=== PATIENT | female | born 1960 | race Caucasian/White ===

== ENCOUNTER 2017-10-05 09:47 | Day surgery (SDC) | payer MEDICAID ==
[2017-10-02 11:25] LABS: BASOPHILS # (AUTO) 0.2 X10'3 (0-0.2); BASOPHILS % (AUTO) 1.7 % (0-1); EOSINOPHILS # (AUTO) 0.3 X10'3 (0-0.9); EOSINOPHILS % (AUTO) 2.3 % (0-6); HEMATOCRIT 40.5 % (35.0-45.0); HEMOGLOBIN 13.7 g/dl (12.0-16.0); LYMPHOCYTES # (AUTO) 3.5 X10'3 (1.1-4.8); LYMPHOCYTES % (AUTO) 31.6 % (21-51); MEAN CORPUSCULAR HEMOGLOBIN 30.2 PG (27.0-31.0); MEAN CORPUSCULAR HGB CONC 33.8 % (33.0-36.5); MEAN CORPUSCULAR VOLUME 89.2 FL (78-98); MEAN PLATELET VOLUME 8.3 FL (7.4-10.4); MONOCYTES # (AUTO) 0.7 X10'3 (0-0.9); MONOCYTES % (AUTO) 6.6 % (2-12); NEUTROPHILS # (AUTO) 6.4 X10'3 (1.8-7.7); NEUTROPHILS % (AUTO) 57.8 % (42-75); PLATELET COUNT 320 X10'3 (140-440); RED BLOOD COUNT 4.54 X10'6 (4.20-5.60); RED CELL DISTRIBUTION WIDTH 13.4 % (11.5-14.5)
[2017-10-02 11:33] LABS: INR 0.9 INR; PARTIAL THROMBOPLASTIN TIME 30 SECONDS (22-32); PROTHROMBIN TIME 9.6 SECONDS (9.0-12.0)
[2017-10-02 11:37] LABS: ALANINE AMINOTRANSFERASE 21 U/L (12-78); ALBUMIN 3.7 G/DL (3.4-5.0); ALKALINE PHOSPHATASE 141 IU/L (46-116); ANION GAP 7 (8-16); ASPARTATE AMINO TRANSFERASE 19 U/L (10-37); BILIRUBIN,TOTAL 0.2 MG/DL (0.1-1.0); BLOOD UREA NITROGEN 11 MG/DL (7-18); BUN/CREATININE RATIO 16.7 (6.6-38.0); CALCIUM 9.1 MG/DL (8.5-10.1); CHLORIDE 106 MMOL/L (99-107); CREATININE 0.66 MG/DL (0.40-0.90); GLUCOSE 98 MG/DL (70-104); SODIUM 140 MMOL/L (135-145); TOTAL CARBON DIOXIDE 26.7 MMOL/L (24-32); TOTAL PROTEIN 7.4 G/DL (6.4-8.2); eGFR > 90 ML/MIN
[~2017-10-05] VITALS: Ht 156.8 cm; Wt 72.6 kg
[2017-10-05] VITALS (17 sets, daily range): BP systolic 124–168; BP diastolic 56–90
[~2017-10-05 09:47] MED LIST: ASPI-974 PO; CLOP75TA15 PO; DIPH25CA83 PO; FEXO180T94 PO; HYDR-565 PO; IBUP-1984 PO; MAGN400C PO; MELA3TAB PO; MULT1TAB74 PO; NITR0.4T51 SL; PANT-47 PO; SUMA25TA35 PO; TRAZ150T78 PO; VERA360C2 PO; VITAMIN B1 PO; VITC500T PO; [UNRECOGNIZED DRUG - OTHER] PO; famotidine 20mg tablet PO ONE; ringers solution, lacted 1,000 ML IV SCH
[2017-10-05] MEDS ORDERED: normal saline 1000ml 1,000 ML IV SCH (10:25)
[2017-10-05] MEDS ORDERED: methylPREDNISolone sod succ 125mg/2ml vial IV ONE (10:25)
[2017-10-05] MEDS ORDERED: nitroGLYCERIN 0.4mg SUBLingual tab SL PRN ×2 (10:25→13:35)
[2017-10-05] MEDS ORDERED: diphenhydrAMINE 25mg capsule PO PRN (10:25)
[2017-10-05] MEDS ORDERED: LORazepam 0.5 MG tablet PO PRN (10:25)
[2017-10-05] MEDS ORDERED: sevoflurane 250ml liquid IH ONE (12:09)
[2017-10-05] MEDS ORDERED: heparin 1,000 units/ml 10ml inj ONE (12:09)
[2017-10-05] MEDS ORDERED: fentaNYL/PF 50MCG/1 ML 2ML syringe ONE ×2 (12:12→13:03)
[2017-10-05] MEDS ORDERED: midazolam 2 mg/2 ml injection ONE (12:12)
[2017-10-05] MEDS ORDERED: iohexol 350 MG/1 ML 200ml bottle ONE ×2 (12:14→12:29)
[2017-10-05] MEDS ORDERED: heparin 1,000unit/ml 10ml vial 10 ML ONE (12:14)
[2017-10-05] MEDS ORDERED: tirofiban 5mg in NS 100mL 100 ML IV ONE (12:17)
[2017-10-05] MEDS ORDERED: LIDOcaine 1%/PF (10mg/ml) 5ml vial ONE (12:45)
[2017-10-05] MEDS ORDERED: nitroGLYCERIN-Tridil 50MG/D5W 250 ML IV ONE (12:49)
[2017-10-05] MEDS ORDERED: ringers solution, lacted 1,000 ML IV SCH (13:17)
[2017-10-05] MEDS ORDERED: ondansetron/PF 4mg/2ml inj IV PRN ×2 (13:20→13:35)
[2017-10-05] MEDS ORDERED: hydrALAZINE 20mg/ml inj. IV PRN (13:20)
[2017-10-05] MEDS ORDERED: fentaNYL/PF 50MCG/1 ML 2ML syringe IV PRN ×2 (13:20)
[2017-10-05] MEDS ORDERED: morphine 2 MG/ML inj. syringe IV PRN ×2 (13:20)
[2017-10-05] MEDS ORDERED: proCHLORperazine 10 MG/2 ml inj IV PRN (13:35)
[2017-10-05] MEDS ORDERED: clopidogrel 300mg tablet PO ONE (13:35)
[2017-10-05] MEDS ORDERED: normal saline 1000ml 1,000 ML IV ONE (13:35)
[2017-10-05] MEDS ORDERED: OXAZEpam 15mg capsule PO PRN (13:35)
[2017-10-05] MEDS: labetalol 5mg/ml 20ml inj. IV PRN ×2 (13:43→14:06)
== END 2017-10-05 19:00 | disposition home or self-care (01) ==
LOC: PAS 09:47 → S STAY 14:35 → PAS 19:00
PROVIDERS: ATTEND Internal Medicine Cardiovascular Disease
DX: I25.119 Atherosclerotic heart disease of native coronary artery with unspecified angina pectoris (principal); F31.9 Bipolar disorder, unspecified; I10 Essential (primary) hypertension; F17.210 Nicotine dependence, cigarettes, uncomplicated; J44.9 Chronic obstructive pulmonary disease, unspecified; K21.9 Gastro-esophageal reflux disease without esophagitis; M19.90 Unspecified osteoarthritis, unspecified site; G89.29 Other chronic pain; Z79.82 Long term (current) use of aspirin; Z79.1 Long term (current) use of non-steroidal anti-inflammatories (NSAID); Z88.2 Allergy status to sulfonamides; Z79.899 Other long term (current) drug therapy; Z90.711 Acquired absence of uterus with remaining cervical stump; Z88.8 Allergy status to other drugs, medicaments and biological substances; Z91.013 Allergy to seafood; Z95.828 Presence of other vascular implants and grafts; Z98.890 Other specified postprocedural states
CPT/HCPCS: 36415; 71046; 80053; 85025; 85610; 85730; 93005; A6257; C1760; C1769; C1874; C9600; J1644; J2250; J2270; J2930; J3010; J3246; J3490; J7030; Q0163; Q9967; A7000; J2001; J7120

== ENCOUNTER 2018-07-13 08:34 | Observation (INO) | payer MEDICAID ==
[~2018-07-13] VITALS: Ht 154.9 cm; Wt 66.8 kg
[~2018-07-13 08:34] MED LIST changes: +HYDR-4353 PO; -HYDR-565 PO; -famotidine 20mg tablet PO ONE; -ringers solution, lacted 1,000 ML IV SCH
[2018-07-13] MEDS ORDERED: normal saline 1000ML IV soln IVB ONE (09:00)
[2018-07-13] MEDS ORDERED: ondansetron/PF 4mg/2ml inj IV ONE (09:00)
[2018-07-13 09:04] LABS: BASOPHILS % (AUTO) 0.3 % (0-1); EOSINOPHILS # (AUTO) 0.3 X10'3 (0-0.9); EOSINOPHILS % (AUTO) 2.2 % (0-6); HEMOGLOBIN 13.7 g/dl (12.0-16.0); LYMPHOCYTES # (AUTO) 0.5 X10'3 (1.1-4.8); LYMPHOCYTES % (AUTO) 3.3 % (21-51); MEAN CORPUSCULAR HEMOGLOBIN 30.3 PG (27.0-31.0); MEAN CORPUSCULAR HGB CONC 33.4 % (33.0-36.5); MEAN CORPUSCULAR VOLUME 90.7 FL (78-98); MEAN PLATELET VOLUME 7.4 FL (7.4-10.4); MONOCYTES # (AUTO) 0.4 X10'3 (0-0.9); MONOCYTES % (AUTO) 2.8 % (2-12); NEUTROPHILS # (AUTO) 13.6 X10'3 (1.8-7.7); NEUTROPHILS % (AUTO) 91.4 % (42-75); PLATELET COUNT 323 X10'3 (140-440); RED BLOOD COUNT 4.52 X10'6 (4.20-5.60); RED CELL DISTRIBUTION WIDTH 13.1 % (11.5-14.5); WHITE BLOOD COUNT 14.9 X10'3 (4.5-11.0)
[2018-07-13 09:19] LABS: ALANINE AMINOTRANSFERASE 28 U/L (12-78); ALBUMIN 3.4 G/DL (3.4-5.0); ALKALINE PHOSPHATASE 131 IU/L (46-116); ANION GAP 8 (8-16); ASPARTATE AMINO TRANSFERASE 21 U/L (10-37); BILIRUBIN,TOTAL 0.3 MG/DL (0.1-1.0); BLOOD UREA NITROGEN 18 MG/DL (7-18); BUN/CREATININE RATIO 26.5 (6.6-38.0); CALCIUM 8.2 MG/DL (8.5-10.1); CHLORIDE 101 MMOL/L (99-107); CREATININE 0.68 MG/DL (0.40-0.90); GLUCOSE 126 MG/DL (70-104); POTASSIUM 3.4 MMOL/L (3.5-5.1); SODIUM 139 MMOL/L (135-145); TOTAL CARBON DIOXIDE 29.9 MMOL/L (24-32); TOTAL PROTEIN 6.8 G/DL (6.4-8.2); eGFR 90 ML/MIN
[2018-07-13 09:37] LABS: INR 0.9 INR; PARTIAL THROMBOPLASTIN TIME 28 SECONDS (22-32); PROTHROMBIN TIME 9.7 SECONDS (9.0-12.0)
[2018-07-13] MEDS ORDERED: acetaminophen 325mg tablet PO PRN (09:45)
[2018-07-13] MEDS ORDERED: magnesium hydroxide 30ml (MOM) UD suspension PO PRN (09:45)
[2018-07-13] MEDS ORDERED: magnesium 1gm/100ml D5W IVPB 100 ML IV PRN (09:45)
[2018-07-13] MEDS ORDERED: ondansetron/PF 4mg/2ml inj IV PRN (09:45)
[2018-07-13] MEDS ORDERED: morphine 2 MG/ML inj. syringe IV PRN (09:45)
[2018-07-13] MEDS ORDERED: magnesium 4gm in 100ml NS 100 ML IV PRN (09:45)
[2018-07-13] MEDS ORDERED: magnesium Cl slow-release 64mg tablet PO PRN (09:45)
[2018-07-13] MEDS: mag hydrox/Alum hydrox/simeth 30ml oral suspension PO PRN ×3 (11:28→20:40)
[2018-07-13 11:39] LABS: HEMOGLOBIN A1C 5.5 % (4.5-6.2)
[2018-07-13 13:53] VITALS: BP 134/68
[2018-07-13] MEDS ORDERED: ASPI-920 PO (14:26)
[2018-07-13] MEDS ORDERED: loperamide 2mg capsule PO PRN (14:40)
[2018-07-13] MEDS: HYDROcodone/acetaminophen 5mg/325mg tablet PO PRN (16:11)
[2018-07-13 20:00] VITALS: BP 109/52
[2018-07-13] MEDS ORDERED: traZODone 150mg tablet PO ONE (20:20)
[2018-07-13] MEDS ORDERED: HYDROcodone/acetaminophen 10/325mg tab PO ONE (20:20)
[2018-07-13] MEDS ORDERED: diphenhydrAMINE 25mg capsule PO ONE (20:20)
[2018-07-13] MEDS ORDERED: SUMAtriptan 25 MG tablet PO ONE (20:20)
[2018-07-13] MEDS ORDERED: Melatonin 3mg tablet PO ONE (20:20)
[2018-07-14] VITALS: BP 103/55
[2018-07-14] MEDS: mag hydrox/Alum hydrox/simeth 30ml oral suspension PO PRN ×2 (04:51→15:30)
[2018-07-14] MEDS: HYDROcodone/acetaminophen 5mg/325mg tablet PO PRN ×4 (04:58→20:24)
[2018-07-14 06:19] LABS: BASOPHILS % (AUTO) 0.2 % (0-1); EOSINOPHILS # (AUTO) 0.1 X10'3 (0-0.9); EOSINOPHILS % (AUTO) 0.9 % (0-6); HEMATOCRIT 37.9 % (35.0-45.0); HEMOGLOBIN 12.5 g/dl (12.0-16.0); LYMPHOCYTES # (AUTO) 1.6 X10'3 (1.1-4.8); LYMPHOCYTES % (AUTO) 21.1 % (21-51); MEAN CORPUSCULAR HGB CONC 32.9 % (33.0-36.5); MEAN CORPUSCULAR VOLUME 91.1 FL (78-98); MEAN PLATELET VOLUME 8.1 FL (7.4-10.4); MONOCYTES # (AUTO) 0.7 X10'3 (0-0.9); MONOCYTES % (AUTO) 9.9 % (2-12); NEUTROPHILS # (AUTO) 5.1 X10'3 (1.8-7.7); NEUTROPHILS % (AUTO) 67.9 % (42-75); PLATELET COUNT 287 X10'3 (140-440); RED BLOOD COUNT 4.17 X10'6 (4.20-5.60); RED CELL DISTRIBUTION WIDTH 13.2 % (11.5-14.5); WHITE BLOOD COUNT 7.5 X10'3 (4.5-11.0)
[2018-07-14 07:10] LABS: ALANINE AMINOTRANSFERASE 23 U/L (12-78); ALBUMIN/GLOBULIN RATIO 0.9 (1.1-1.5); ALKALINE PHOSPHATASE 108 IU/L (46-116); ANION GAP 10 (8-16); ASPARTATE AMINO TRANSFERASE 18 U/L (10-37); BILIRUBIN,TOTAL 0.2 MG/DL (0.1-1.0); BLOOD UREA NITROGEN 6 MG/DL (7-18); BUN/CREATININE RATIO 10.3 (6.6-38.0); CALCIUM 8.2 MG/DL (8.5-10.1); CHLORIDE 104 MMOL/L (99-107); CHOL/HDL RATIO 5.7 (0.00-4.99); CHOLESTEROL 187 MG/DL (0-200); CREATININE 0.58 MG/DL (0.40-0.90); GLUCOSE 100 MG/DL (70-104); HDL CHOLESTEROL 33 MG/DL (35-60); LDL CHOLESTEROL 92 MG/DL (50-100); MAGNESIUM 2.5 MG/DL (1.5-2.4); POTASSIUM 3.4 MMOL/L (3.5-5.1); SODIUM 141 MMOL/L (135-145); TOTAL CARBON DIOXIDE 26.9 MMOL/L (24-32); TOTAL PROTEIN 6.3 G/DL (6.4-8.2); TRIGLYCERIDES 282 MG/DL (20-135); eGFR > 90 ML/MIN
[2018-07-14 07:46] VITALS: BP 116/63
[2018-07-14] MEDS ORDERED: pantoprazole 40 MG vial IV SCH (08:00)
[2018-07-14] MEDS ORDERED: enoxaparin 40mg/0.4ml syringe SUBCUT SCH (08:00)
[2018-07-14] MEDS: nicotine 14mg patch - 24hr TD SCH (08:00)
[2018-07-14] MEDS ORDERED: potassium Cl 20 mEq SR tablet PO STA (10:42)
[2018-07-14] MEDS: enoxaparin 40mg/0.4ml syringe SQ SCH (10:52)
[2018-07-14] MEDS ORDERED: SUMAtriptan 25 MG tablet PO PRN (11:45)
[2018-07-14] MEDS ORDERED: nitroGLYCERIN 0.4mg SUBLingual tab SL PRN (11:45)
[2018-07-14] MEDS: sucralfate 1 gm tablet PO SCH ×3 (12:20→20:30)
[2018-07-14 12:29] VITALS: BP 135/63
[2018-07-14 20:00] VITALS: BP 111/74
[2018-07-14] MEDS: pantoprazole 40 MG vial IV SCH (20:19)
[2018-07-14] MEDS ORDERED: traZODone 150mg tablet PO SCH (20:40)
[2018-07-14] MEDS ORDERED: diphenhydrAMINE 25mg capsule PO SCH (21:00)
[2018-07-14] MEDS ORDERED: Melatonin 3mg tablet PO SCH (21:00)
[2018-07-15] VITALS: BP 116/59
[2018-07-15 04:39] LABS: BASOPHILS % (AUTO) 0.4 % (0-1); EOSINOPHILS # (AUTO) 0.2 X10'3 (0-0.9); EOSINOPHILS % (AUTO) 3.1 % (0-6); HEMATOCRIT 34.9 % (35.0-45.0); HEMOGLOBIN 11.7 g/dl (12.0-16.0); LYMPHOCYTES # (AUTO) 2.4 X10'3 (1.1-4.8); LYMPHOCYTES % (AUTO) 39.1 % (21-51); MEAN CORPUSCULAR HEMOGLOBIN 30.4 PG (27.0-31.0); MEAN CORPUSCULAR HGB CONC 33.5 % (33.0-36.5); MEAN CORPUSCULAR VOLUME 90.7 FL (78-98); MEAN PLATELET VOLUME 7.8 FL (7.4-10.4); MONOCYTES # (AUTO) 0.8 X10'3 (0-0.9); NEUTROPHILS # (AUTO) 2.7 X10'3 (1.8-7.7); NEUTROPHILS % (AUTO) 44.4 % (42-75); PLATELET COUNT 253 X10'3 (140-440); RED BLOOD COUNT 3.84 X10'6 (4.20-5.60); RED CELL DISTRIBUTION WIDTH 13.2 % (11.5-14.5); WHITE BLOOD COUNT 6.1 X10'3 (4.5-11.0)
[2018-07-15 04:54] LABS: ALANINE AMINOTRANSFERASE 27 U/L (12-78); ALBUMIN 2.8 G/DL (3.4-5.0); ALBUMIN/GLOBULIN RATIO 0.9 (1.1-1.5); ALKALINE PHOSPHATASE 104 IU/L (46-116); ANION GAP 6 (8-16); ASPARTATE AMINO TRANSFERASE 22 U/L (10-37); BILIRUBIN,TOTAL 0.2 MG/DL (0.1-1.0); BLOOD UREA NITROGEN 8 MG/DL (7-18); BUN/CREATININE RATIO 12.7 (6.6-38.0); CALCIUM 8.3 MG/DL (8.5-10.1); CHLORIDE 106 MMOL/L (99-107); CREATININE 0.63 MG/DL (0.40-0.90); GLUCOSE 101 MG/DL (70-104); MAGNESIUM 2.2 MG/DL (1.5-2.4); POTASSIUM 3.9 MMOL/L (3.5-5.1); SODIUM 139 MMOL/L (135-145); TOTAL CARBON DIOXIDE 27.2 MMOL/L (24-32); TOTAL PROTEIN 5.9 G/DL (6.4-8.2); eGFR > 90 ML/MIN
[2018-07-15] MEDS: HYDROcodone/acetaminophen 5mg/325mg tablet PO PRN (05:36)
[2018-07-15 07:20] VITALS: BP 111/60
[2018-07-15] MEDS: pantoprazole 40 MG vial IV SCH (07:27)
[2018-07-15] MEDS: enoxaparin 40mg/0.4ml syringe SQ SCH (07:28)
[2018-07-15] MEDS: sucralfate 1 gm tablet PO SCH (07:30)
[2018-07-15] MEDS: nicotine 14mg patch - 24hr TD SCH (07:49)
[2018-07-15] MEDS ORDERED: magnesium oxide 400mg tablet PO SCH (08:00)
[2018-07-15] MEDS ORDERED: ascorbic acid 500mg tablet PO SCH (08:00)
[2018-07-15] MEDS ORDERED: clopidogrel 75mg tablet PO SCH (08:00)
[2018-07-15] MEDS ORDERED: verapamil SR 120mg (sust. release) tab PO SCH (08:00)
[2018-07-15] MEDS ORDERED: VERAPAMIL HCL PO SCH (08:00)
[2018-07-15] MEDS ORDERED: multivitamins, therapeutics tablet PO SCH (08:00)
[2018-07-15] MEDS ORDERED: cyanocobalamin 500mcg tablet PO SCH (08:00)
[2018-07-15] MEDS ORDERED: VITAMIN B1 PO SCH (08:00)
[2018-07-15] MEDS ORDERED: [UNRECOGNIZED DRUG - OTHER] PO SCH (08:00)
[2018-07-15] MEDS ORDERED: non-formulary drug (Magnesium Oxide (Magnesium) 1 CAP) PO SCH (08:00)
[2018-07-15] MEDS ORDERED: non-formulary drug (Multivitamins 1 TAB) PO SCH (08:00)
[2018-07-15] MEDS ORDERED: SUCR1TAB34 PO (08:40)
[2018-07-15] MEDS ORDERED: PANT-47 PO (08:40)
== END 2018-07-15 11:10 | disposition home or self-care (01) ==
LOC: ER 08:34 → SUR 3N 09:41
PROVIDERS: ADMIT Internal Medicine; ATTEND Internal Medicine
DX: R07.89 Other chest pain (principal); K21.9 Gastro-esophageal reflux disease without esophagitis; F17.210 Nicotine dependence, cigarettes, uncomplicated; I10 Essential (primary) hypertension; F20.9 Schizophrenia, unspecified; E78.00 Pure hypercholesterolemia, unspecified; I25.10 Atherosclerotic heart disease of native coronary artery without angina pectoris; R11.2 Nausea with vomiting, unspecified; R19.7 Diarrhea, unspecified; G89.29 Other chronic pain; Z85.41 Personal history of malignant neoplasm of cervix uteri; Z95.5 Presence of coronary angioplasty implant and graft; Z90.710 Acquired absence of both cervix and uterus
CPT/HCPCS: 36415; 71045; 80053; 80061; 83036; 83735; 84484; 85025; 85610; 85730; 93005; 93306; 96361; 96372; 96374; 96375; 96376; 99285; C9113; G0378; J1650; J2405; Q0163

== ENCOUNTER 2020-03-05 11:11 | Day surgery (SDC) | payer MEDICAID ==
[2020-02-27 10:41] LABS: BASOPHILS # (AUTO) 0.1 X10'3 (0-0.2); BASOPHILS % (AUTO) 1.3 % (0-1); EOSINOPHILS # (AUTO) 0.2 X10'3 (0-0.9); EOSINOPHILS % (AUTO) 1.9 % (0-6); LYMPHOCYTES # (AUTO) 3.6 X10'3 (1.1-4.8); LYMPHOCYTES % (AUTO) 36.3 % (21-51); MEAN CORPUSCULAR HEMOGLOBIN 29.4 PG (27.0-31.0); MEAN CORPUSCULAR HGB CONC 33.2 g/dL (33.0-36.5); MEAN CORPUSCULAR VOLUME 88.7 FL (78-98); MEAN PLATELET VOLUME 7.2 FL (7.4-10.4); MONOCYTES # (AUTO) 0.9 X10'3 (0-0.9); MONOCYTES % (AUTO) 9.3 % (2-12); NEUTROPHILS # (AUTO) 5.1 X10'3 (1.8-7.7); NEUTROPHILS % (AUTO) 51.2 % (42-75); PRE OP HEMATOCRIT 38.2 % (35.0-45.0); PRE OP HEMOGLOBIN 12.7 g/dL (12.0-16.0); PRE OP PLATELET COUNT 330 X10'3 (140-440); RED BLOOD COUNT 4.31 X10'6 (4.20-5.60); RED CELL DISTRIBUTION WIDTH 12.9 % (11.5-14.5)
[2020-02-27 11:00] LABS: ALBUMIN 3.5 G/DL (3.4-5.0); ALKALINE PHOSPHATASE 135 IU/L (46-116); BLOOD UREA NITROGEN 14 MG/DL (7-18); BUN/CREATININE RATIO 19.7 (6.6-38.0); CALCIUM 8.7 MG/DL (8.5-10.1); CHLORIDE 105 MMOL/L (99-107); CREATININE 0.71 MG/DL (0.40-0.90); PRE OP ALT 36 U/L (30-65); PRE OP ANION GAP 3 (8-16); PRE OP AST 19 U/L (10-37); PRE OP BILIRUB, TOTAL 0.3 MG/DL (0.0-1.0); PRE OP GLUCOSE 79 MG/DL (70-104); PRE OP POTASSIUM 4.1 MMOL/L (3.4-5.1); PRE OP SODIUM 139 MMOL/L (135-145); TOTAL CARBON DIOXIDE 30.7 MMOL/L (24-32); TOTAL PROTEIN 6.9 G/DL (6.4-8.2); eGFR 85 ML/MIN
[~2020-03-05] VITALS: Ht 154.9 cm; Wt 71.3 kg
[2020-03-05] VITALS (7 sets, daily range): BP systolic 130–151; BP diastolic 72–117
[~2020-03-05 11:11] MED LIST changes: -ASPI-974 PO; +CELE-193 PO; -CLOP75TA15 PO; +CYCL-1 PO; +DOCU100C40 PO; -IBUP-1984 PO; -MAGN400C PO; -MELA3TAB PO; -MULT1TAB74 PO; -TRAZ150T78 PO; +VARE0.5T PO; -VITAMIN B1 PO; -VITC500T PO; +[UNRECOGNIZED DRUG - OTHER] PO; -[UNRECOGNIZED DRUG - OTHER] PO; +cefazolin/dext.iso 2gm/50ml 50 ML IV ONE; +famotidine 20mg tablet PO ONE; +ringers solution, lacted 1,000 ML IV SCH; +vancomycin 1,500 MG in NS 500ml IV soln IV ONE
[2020-03-05] MEDS ORDERED: methylPREDNISolone sod succ 125mg/2ml vial ONE (12:38)
[2020-03-05] MEDS ORDERED: BUPIVAcaine/PF 2.5 mg/ml (0.25%) 30ml vial ONE (12:38)
[2020-03-05] MEDS ORDERED: LIDOcaine 0.5% W/epiNEPHrine 1:200,000 50ml vial IJ ONE (13:07)
[2020-03-05] MEDS ORDERED: LIDOcaine 0.5% (5mg/ml) 50ml vial ONE (13:15)
[2020-03-05] MEDS ORDERED: fentaNYL/PF 50MCG/1 ML 2ML syringe ONE (13:16)
[2020-03-05] MEDS ORDERED: midazolam 2 mg/2 ml injection ONE (13:23)
[2020-03-05] MEDS ORDERED: propofol inj 20 ML IV ONE ×2 (13:29)
[2020-03-05] MEDS ORDERED: ringers solution, lacted 1,000 ML IV SCH (13:51)
[2020-03-05] MEDS ORDERED: morphine 2 MG/ML inj. syringe IV PRN (13:55)
[2020-03-05] MEDS ORDERED: morphine 4 MG/ML inj SYRINge IV PRN (13:55)
[2020-03-05] MEDS ORDERED: ketorolac trometh. 30mg/ml inj. IV ONE (13:55)
[2020-03-05] MEDS ORDERED: proCHLORperazine 10 MG/2 ml inj IV PRN (13:55)
[2020-03-05] MEDS ORDERED: acetaminophen 1,000mg/100ml IV 100 ML IV PRN (13:55)
[2020-03-05] MEDS ORDERED: meperidine/PF 25mg/ml syringe IV PRN (13:55)
[2020-03-05] MEDS ORDERED: HYDROmorphone inj. 0.5 MG/0.5 ML DISP.SYRIN IV PRN ×2 (13:55)
[2020-03-05] MEDS ORDERED: ondansetron/PF 4mg/2ml inj IV PRN (13:55)
--- NOTE | 2020-03-05 14:02 | NUR ---
Received from OR via [facility], accompanied by Anesthesiologist Alex and report given by Anesthesiolgist. Pt alert and responsive all VS stable mask to 10L. 20G left forearm LR at 100cc/hr. Right wrist covered with gauze splint and obey wrap, pt wiggles fingers and good sensation, cap refill less than 3 sec.
--- NOTE | 2020-03-05 15:02 | NUR ---
Pt discharged to vehicle by wheelchair without incident. Pt understands what symptoms to look for and if problems occur to come back to ER or call MD office. Pt states she has pain meds at home already. IV dc'd and all belongings returned to patient. Fingers only slightly numb but still no pain. Good cap refill, good motor movement.
== END 2020-03-05 15:02 | disposition home or self-care (01) ==
LOC: PAS 11:11
PROVIDERS: ATTEND Orthopaedic Surgery
DX: G56.01 Carpal tunnel syndrome, right upper limb (principal); G56.21 Lesion of ulnar nerve, right upper limb; J44.9 Chronic obstructive pulmonary disease, unspecified; G43.909 Migraine, unspecified, not intractable, without status migrainosus; F31.9 Bipolar disorder, unspecified; F17.210 Nicotine dependence, cigarettes, uncomplicated; F41.9 Anxiety disorder, unspecified; I10 Essential (primary) hypertension; I25.10 Atherosclerotic heart disease of native coronary artery without angina pectoris; G89.4 Chronic pain syndrome; K21.9 Gastro-esophageal reflux disease without esophagitis; E66.8 Other obesity; Z68.32 Body mass index [BMI] 32.0-32.9, adult; Z95.5 Presence of coronary angioplasty implant and graft; Z90.710 Acquired absence of both cervix and uterus; Z11.59 Encounter for screening for other viral diseases; Z80.9 Family history of malignant neoplasm, unspecified; Z82.49 Family history of ischemic heart disease and other diseases of the circulatory system
CPT/HCPCS: 36415; 64719; 64721; 80053; 82948; 85025; 93005; A6222; J2001; J2250; J2704; J2930; J3010; J3370; J3490; J7040; U0003; A4215; A6449; A7000; J7120

== ENCOUNTER 2022-06-07 08:45 | Emergency (ER) | payer MEDICAID ==
[~2022-06-07] VITALS: Ht 154.9 cm; Wt 63.6 kg
[~2022-06-07 08:45] MED LIST changes: -cefazolin/dext.iso 2gm/50ml 50 ML IV ONE; -famotidine 20mg tablet PO ONE; -ringers solution, lacted 1,000 ML IV SCH; -vancomycin 1,500 MG in NS 500ml IV soln IV ONE
[2022-06-07 08:50] VITALS: BP 190/80
--- NOTE | 2022-06-07 10:30 | NUR ---
Patient was seen and assessed by provider.
== END 2022-06-07 10:30 | disposition home or self-care (01) ==
LOC: ER 08:45
DX: S63.92XA Sprain of unspecified part of left wrist and hand, initial encounter (principal); I11.9 Hypertensive heart disease without heart failure; E78.00 Pure hypercholesterolemia, unspecified; F31.9 Bipolar disorder, unspecified; F20.9 Schizophrenia, unspecified; Z56.0 Unemployment, unspecified; Z91.013 Allergy to seafood; Z88.2 Allergy status to sulfonamides; Z79.899 Other long term (current) drug therapy; Z79.1 Long term (current) use of non-steroidal anti-inflammatories (NSAID); W19.XXXA Unspecified fall, initial encounter; Y93.89 Activity, other specified; Y92.89 Other specified places as the place of occurrence of the external cause; Y99.8 Other external cause status
CPT/HCPCS: 29125; 73110; 73130; 99284; L3908

== ENCOUNTER 2023-09-09 21:44 | Emergency (ER) | payer MEDICAID ==
[~2023-09-09] VITALS: Ht 154.9 cm; Wt 56.0 kg
[2023-09-09] MEDS ORDERED: ketorolac trometh inj. 60 MG/2 ML VIAL IM ONE (22:40)
[2023-09-09] MEDS ORDERED: NAPR-56 PO (22:44)
[2023-09-09 22:53] VITALS: BP 136/78; PULSE 78; RESP 16; TEMP 98; O2SAT 99
== END 2023-09-09 22:54 | disposition home or self-care (01) ==
LOC: ER 21:45
DX: S63.501A Unspecified sprain of right wrist, initial encounter (principal); I25.10 Atherosclerotic heart disease of native coronary artery without angina pectoris; E78.00 Pure hypercholesterolemia, unspecified; I10 Essential (primary) hypertension; G89.29 Other chronic pain; Z56.0 Unemployment, unspecified; Z95.5 Presence of coronary angioplasty implant and graft; Z90.710 Acquired absence of both cervix and uterus; Z91.013 Allergy to seafood; Z88.2 Allergy status to sulfonamides; Z79.899 Other long term (current) drug therapy; V00.121A Fall from non-in-line roller-skates, initial encounter; Y93.89 Activity, other specified; Y92.89 Other specified places as the place of occurrence of the external cause; Y99.8 Other external cause status
CPT/HCPCS: 73110; 96372; 99283; J1885

== ENCOUNTER 2024-09-12 09:58 | Outpatient (CLI) | payer MEDICAID ==
[~2024-09-12] VITALS: Ht 154.9 cm; Wt 62.6 kg
[2024-09-12] MEDS: albuterol 2.5 MG/3 ML nebule NEB ONE (10:50)
[2024-09-12 10:52] VITALS: PULSE 103; RESP 18; O2SAT 98
[2024-09-12 11:05] VITALS: PULSE 98; RESP 17
== END 2024-09-12 23:59 | disposition home or self-care (01) ==
LOC: RT 09:58
PROVIDERS: ATTEND Physician Assistant Medical
DX: J43.2 Centrilobular emphysema (principal)
CPT/HCPCS: 94060; 94760; J7030